=== PATIENT | male | born 1970 | race Caucasian/White ===

== ENCOUNTER → 2016-12-25 | Outpatient (CLI) | payer OTHER ==
[~2016-12-25] MED LIST: OMNIPAQUE 350 MG/ML, 150 ML BOTTLE ONE
== END | disposition home or self-care (01) ==
LOC: CFH 14:03
PROVIDERS: ATTEND Urology
DX: N13.30 Unspecified hydronephrosis (principal); N13.4 Hydroureter; N20.2 Calculus of kidney with calculus of ureter
CPT/HCPCS: 74178; Q9967

== ENCOUNTER → 2017-04-01 | Outpatient (CLI) | payer OTHER | LOC: RAD 16:22 | PROVIDERS: ATTEND Anesthesiology | DX: M79.604 Pain in right leg (principal); R60.0 Localized edema; M62.831 Muscle spasm of calf ==